=== PATIENT | male | born 1955 | race Caucasian/White ===

== ENCOUNTER 2022-01-04 01:02 | Observation (INO) | payer MEDICARE ==
[~2022-01-04] VITALS: Ht 190 cm; Wt 102.5 kg
--- OUTSIDE RECORDS SUMMARY | 2022-01-05 01:40 | XMS REPORT | Clinical Summary ---
Author [facility] Address Unknown Phone Unavailable Care Team Providers Care Dental Hygiene Administrative Assistant Name Role Phone Bk Padilla MD PCP Dylan Montana DO Unavailable Source Comments Some departments are not documenting in the electronic medical record. If you d o not see the information that you expected, contact Release of Information in [facility] Information Management department at [phone] for further assistan ce in locating additional records.[facility] Allergies No known active allergies Medications End Date Status Medication Sig Dispensed Refills Start Date Active aspirin-calcium carbonate Take 81 mg by 0 81 mg-300 mg calcium(777 mouth daily. mg) tab Active carvediloL (COREG) 12.5 Take 12.5 mg 0 04/21/ mg tablet by mouth 0 twice daily. Active lisinopriL (ZESTRIL) 10 Take 10 mg by 0 03/11/ mg tablet mouth daily. 0 Active simvastatin (ZOCOR) 40 mg Take 40 mg by 0 /2 tablet mouth daily. 0 Active folic Take 1 tablet 0 acid/multivit-min/lutein by mouth (CENTRUM SILVER PO) daily. Active zinc sulfate 220 mg (50 Take 220 mg 0 mg elemental zinc) by mouth capsule daily. Active tamsulosin (FLOMAX) 0.4 Take one 90 capsule 3 mg capsuleIndications: capsule by 1 Benign prostatic mouth daily. hyperplasia with lower Take 30 min urinary tract symptoms, after same symptom details meal. Do not unspecified cut/ crush/ chew. Active Problems Problem Noted Date Benign prostatic hyperplasia (BPH) 01/18/2021 Overview: MRI Prostate (08/20/2019): Prostate vol ume = 36 mL. MRI Prostate (07/19/2021): Prostate vol ume = 46 mL. Last Assessment & Plan: Formatting of t his note might be different from the original. Continue Tamsulosin 0.4 mg BID. Prostate cancer 04/08/2019 Overview: PSA (03/12/2019) = 5.6 ng/mL. TRUS Prostate (04/08/2019): Prostate vo lume = 36.34 mL. PSAD = 0.15 ng/mL^2. Prostate bx (04/08/2019): cT1c; Low-ris k adenocarcinoma; Dr. Montana. -- (R) Grade group 1, 2/8 cores, 5%; MRI Prostate (08/20/2019): Prostate vol ume = 36 mL. -- No evidence to suggest high-grade pr ostate carcinoma. Prostate bx (07/15/2020): No evidence o f malignancy; NINA [facility]. 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 MRI Prostate (07/19/2021): Prostate vol ume = 46 mL. PSAD = 0.12 ng/mL^2. -- (R) posterolateral midgland peripher al zone lesion, 1.2 cm. PI-RADS 3 vs prior prostatitis. Last Assessment & Plan: Formatting of t his note might be different from the original. PSA reviewed --> stable. MRI reviewed --> stable. F/u 6 mo Telemed appt w/ outside PSA ~ 1-4 wks prior to appt. Hypertension, essential Dyslipidemia Nocturia Last Assessment & Plan: Formatting of t his note might be different from the original. See BPH A&P note. Surgical History Surgery Date Site/Laterality Comments HX HEART CATHETERIZATION SKIN CANCER EXCISION Medical History Medical History Date Comments Skin cancer Back Prostate cancer (HCC) 04/08/2019 Hypertension, essential Dyslipidemia Family History Medical History Relation Name Comments Cancer-Prostate Neg Hx Social History Date Tobacco Use Types Packs/Day Years Used Smoking Tobacco: Never Smokeless Tobacco: Never Comments Alcohol Use Standard Drinks/Week Not Currently 0 (1 standard drink = 0.6 o z pure alcohol) Sex Assigned at Date Recorded Male 07/10/2020 3:20 PM CDT Obstetrics History Last Filed Vital Signs Reading Time Taken Comments Vital Sign 127/71 07/19/2021 1:23 PM CDT Blood Pressure 77 07/19/2021 1:23 PM CDT Pulse 36.4 C (97.5 F) 07/15/2020 1:37 PM CDT Temperature 18 07/19/2021 1:23 PM CDT Respiratory Rate - - Oxygen Saturation - - Inhaled Oxygen Concentration 104.3 kg (230 lb) 07/19/2021 1:23 PM CDT Weight 190.5 cm (6' 3") 07/19/2021 1:23 PM CDT Height 28.75 07/19/2021 1:23 PM CDT Body Mass Index Plan of Treatment Health Maintenance Due Date Last Done Comments MEDICARE ANNUAL WELLNESS 1955 VISIT DTAP/TDAP VACCINES (1 - 06/08/1971 Tdap) HEPATITIS C SCREENING 06/08/1971 PHYSICAL (COMPREHENSIVE) 06/08/1971 EXAM COLORECTAL CANCER 1998 SCREENING SHINGLES RECOMBINANT 06/08/2003 VACCINE (1 of 2) PNEUMOCOCCAL VACCINE (1 - 2018 PCV) COVID-19 VACCINE (3 - 05/25/2020 03/30/2020, Booster for Moderna 03/02/2020 series) ADVANCED CARE PLANNING 02/06/2021 DISCUSSION AND DOCUMENTATION DEPRESSION SCREENING 02/06/2021 INFLUENZA VACCINE 09/06/2021 01/09/2020 Results Not on filefrom Last 3 Months Insurance Type Payer Benefit Subscriber ID Effective Phone Address Plan / Dates Group Medicare MEDICARE MEDICARE [id number] 2018-P [phone] [address] [place] [address] PPO BCBS [employer] [id number] 2018-P [phone] [id number] [place] [address] Care Teams Start Date End Date Dental Hygiene Administrative Assistant Relationship Specialty 4/1/20 Bk Padilla MD PCP - General [place] [address] [place] [address] 05/13/19 Dylan Montana DO Urology [address] [address]
[2022-01-05] MEDS ORDERED: ACETAMINOPHEN 500 MG TAB (TYLENOL) PO PRN (04:00)
[2022-01-05] MEDS ORDERED: ENOXAPARIN 100 MG/1 ML (LOVENOX) SYR SC ONE (06:00)
[2022-01-05 08:00] VITALS: BP 121/77
[2022-01-05] MEDS ORDERED: ENOXAPARIN 100 MG/1 ML (LOVENOX) SYR SC SCH (09:00)
[2022-01-05] MEDS ORDERED: ASPIRIN E.C. 81 MG (ECOTRIN) TAB PO SCH (09:00)
--- NOTE | 2022-01-05 09:05 | History & Physical-Hospitalist ---
History of Present Illness HPI/Chief Complaint Patient is a 66-year-old male with past medical history of coronary artery disease, hypertension, hyperlipidemia, who presented to the emergency department at [facility] due to syncope. He states he had a normal day yesterday and was walking in his room and passed out. He was in the bathroom when he woke up sat down and then passed out again. His witnessed this and states that he was unconscious for less than a minute. On arrival to the emergency department he was found to be quite tachycardic in the 160s. The ER physician there consulted with [place] [facility] who recommended digoxin and adenosine. He appeared to have an underlying atrial flutter and laboratory work-up revealed an elevated troponin. He was transferred here for further evaluation. On my exam he has no complaints and is in sinus rhythm. He was incidentally found to be COVID positive upon transfer but denies any symptoms. Source: patient Date Seen 01/05/22 Time Seen by a Provider: 09:04 Attending Physician Bk Padilla DO PCP Admitting Physician: Rancho Recio MD Attending Physician: Rancho Recio MD Referring Physician Date of Admission Jan 05, 2022 at 01:24 Home Medications & Allergies Home Medications Reviewed patient Home Medication Reconciliation performed by pharmacy medication reconciliations microcomputer technician and/or nursing. Patients Allergies have been reviewed. Allergies Allergies Coded Allergies No Known Drug Allergies (Vdqtvnlmzo73/30/22) Past Ghdyyfh-Dmgbex-Zhkpdy Hx Patient Social History Marrital Status: Tobacco Use?: No Smokeless Tobacco Frequency: Never a User Use of E-Cig and/or Vaping dev: No Substance use?: No Alcohol Use?: No Pt feels they are or have been: No Immunizations Up To Date First/Initial COVID19 Vaccinat: y Second COVID19 Vaccination Brice: y- but not boosted Current Status Advance Directives: No Communicates: Verbally Primary Language: Cypriot Preferred Spoken Language: Cypriot Is interpretation needed?: No Implanted or Applied Medical D: None Past Medical History Coronary Artery Disease, High Cholesterol, Hypertension Benign Prostatic Hyperpl Diabetes, Non-Insulin dep Review of Systems Constitutional: No chills, No fever EENTM: No nose congestion, No throat pain Respiratory: No cough, No dyspnea on exertion, No short of breath Cardiovascular: No edema; Hx of Intervention, syncope Gastrointestinal: no symptoms reported Genitourinary: no symptoms reported Musculoskeletal: no symptoms reported Physical Exam Physical Exam Vital Signs Vital Signs - First Documented 01/05/22 01/05/22 01/05/22 01:30 01:48 08:00 Temp 36.3 Pulse 65 Resp 18 B/P (MAP) 121/77 (92) Pulse Ox 93 O2 Delivery Room Air Capillary Refill : Height, Weight, BMI Height: '" Weight: lbs. oz. kg; 28.74 BMI Method: General Appearance: No Apparent Distress, WD/WN HEENT: PERRL/EOMI, Moist Mucous Membranes; No Scleral Icterus (L), No Scleral Icterus (R) Neck: Normal Inspection, Supple Respiratory: Lungs Clear, No Accessory Muscle Use, No Respiratory Distress Cardiovascular: Regular Rate, Rhythm, No JVD, No Murmur Gastrointestinal: Normal Bowel Sounds, Non Tender, Soft Extremity: Normal Capillary Refill, No Calf Tenderness Neurologic/Psychiatric: Alert, Oriented x3, Normal Mood/Affect; No Aphasia, No Facial Droop Results Results/Procedures Labs Laboratory Tests 01/05/22 07:20 Patient resulted labs reviewed. Assessment/Plan Admission Diagnosis NSTEMI Admission Status: Observation Reason for Inpatient Admission: see below Assessment and Plan NSTEMI Atrial tachycardia CAD HTN HLD Trend troponins Received ASA and Heparin at OSH Cardiology consulted, appreciate recs Discussed with [facility] o[facility]rr[facility] for Dr Flanagan and they recommend Eliquis for likely underlying atrial flutter Echo ordered Continue home meds as appropriate COVID Incidental finding Higher risk given age and comorbidities Pt agreeable to Paxlovid On room air- not admitted for COVID BPD Resume home Flomax DVT ppx: Lovenox Diagnosis/Problems Diagnosis/Problems (1) Atrial tachycardia Status: Acute (2) CAD (coronary artery disease) Status: Chronic Qualifiers: Coronary Disease-Associated Artery/Lesion type: [place] artery [place] vs. transplanted heart: [place] heart Associated angina: without angina Qualified Codes: I25.10 - Atherosclerotic heart disease of [place] coronary artery without angina pectoris (3) Essential (primary) hypertension Status: Chronic (4) HLD (hyperlipidemia) Status: Chronic Qualifiers: Hyperlipidemia type: mixed hyperlipidemia Qualified Codes: E78.2 - Mixed hyperlipidemia (5) Syncope Status: Acute Qualifiers: Syncope type: unspecified Qualified Codes: R55 - Syncope and collapse PHILLIP MOREIRA MD Jan 05, 2022 9:04 am
--- NOTE | 2022-01-05 09:43 | Consultation-Cardiology ---
HPI-Cardiology Cardiology Consultation: Date of Consultation 01/05/22 Time Seen by a Provider: 09:00 Date of Admission 01-05-22 Attending Physician Bk Padilla DO Admitting Physician Admitting Physician: Rancho Recio MD Attending Physician: Rancho Recio MD Consulting Physician CARRIE MARTINEZ HPI: Chief Complaint: Syncope Atrial tachycardia vs atrial flutter with 2:1 conduction Mr. Scott is a 66 yr old male admitted to [facility] from [facility] d/t syncopal episodes x 2 at home. He reports he got up yesterday to use the bathroom. He states he was having palpitations and the next thing he recalls he had passed out hitting his head on the wall. He reports he came to when he hit the floor. He reports he then decided to go sit down once he got up. He was still having palpitations and he again passed out while sitting coming to when he hit the floor. He does not report any loss of bowel or bladder control. He states after he came to the second time he could still feel his heart racing. He denies any CP or SOB. He denies having any LE swelling. He states in the ED at [facility] they found his HR to be in the 130's-140's. He states he received a medication in the ED and the palpitations resolved and have not returned. He states he has not had any n/v/d. No c/o fever or chills. He reports he was swabbed on his way out the door from [place] to be transferred here and found to be COVID positive. Review of Systems-Cardiology Review of Systems Constitutional: No chills, No fever, No malaise Eyes: No vision change Ears/Nose/Throat: No epistaxis, No recent hearing loss, No ulcerations Respiratory: As described under HPI Cardiovascular: As described under HPI Gastrointestinal: No constipation, No diarrhea, No nausea, No vomiting Genitourinary: No dysuria, No hematuria Musculoskeletal: no symptoms reported Skin: No rash on exposed areas, No ulcerations on exposed areas Psychiatric/Neurological: syncope; No anxiety, No depression, No seizure, No focal weakness Hematologic: No bleeding abnormalities OJE-Rpcsfh-Ocmewh Hx Patient Social History Have you traveled recently?: No Alcohol Use?: No Pt feels they are or have been: No Past Medical History PMH As described under Assessment. Family Medical History Family Medical History: He reports his father had "heart trouble", exact details unknown other than he had a pacemaker. Allergies and Home Medications Allergies Coded Allergies: No Known Drug Allergies (Unverified , 01/05/22) Patient Home Medication List Aspirin (Aspirin EC) 81 Mg Tablet.dr, 81 MG PO DAILY, (Reported) Entered as Reported by: ABA MERRILL on 01/05/221324 Last Action: Held Carvedilol (Carvedilol) 12.5 Mg Tablet, 12.5 MG PO BID, (Reported) Entered as Reported by: ABA MERRILL on 01/05/221324 Last Action: Held Lisinopril (Lisinopril) 10 Mg Tablet, 10 MG PO DAILY, (Reported) Entered as Reported by: ABA MERRILL on 01/05/221324 Last Action: Held Multivitamin (Multivitamin) 1 Each Tablet, 1 EACH PO DAILY, (Reported) Entered as Reported by: ABA MERRILL on 01/05/221324 Last Action: Converted Simvastatin (Simvastatin) 40 Mg Tablet, 40 MG PO HS, (Reported) Entered as Reported by: ABA MERRILL on 01/05/221324 Last Action: Converted Tamsulosin HCl (Flomax) 0.4 Mg Cap, 0.4 MG PO HS, (Reported) Entered as Reported by: ABA MERRILL on 01/05/221324 Last Action: Continued Physical Exam-Cardiology Physical Exam Vital Signs/I&O 01/06/22 01/06/22 01/06/22 01/06/22 00:00 01:00 04:14 07:00 Temp 37.0 36.3 Pulse 59 50 63 50 Resp 15 17 B/P (MAP) 117/76 (90) 124/75 (91) Pulse Ox 97 98 O2 Delivery Room Air Room Air 01/06/22 08:00 Temp 36.2 Pulse 69 Resp 16 B/P (MAP) 125/79 (94) Pulse Ox 97 O2 Delivery Room Air 01/06/22 00:00 Intake Total 730 ml Balance 730 ml Capillary Refill : Constitutional: AAO x 3, well-developed, well-nourished HEENT: PERRL, hearing is well preserved, oral hygience is good Neck: No carotid bruit; carotid pulses are 2 + bilaterally Respiratory: No accessory muscle use, No respiratory distress; chest expansion is symmetric, chest is bilaterally symmetric, lungs clear to auscultation Cardiovascular: regular rate-rhythm; No JVD; S1 and S2 Gastrointestinal: No tender; soft, round, audible bowel sounds Extremities: no lower extremity edema bilateral Neurologic/Psychiatric: grossly intact (moves all extremities) Skin: No rash on exposed areas, No ulcerations on exposed areas Data Review Labs Laboratory Tests 01/05/22 14:35: Troponin I 0.057H 01/06/22 08:35: Sodium Level 141, Potassium Level 4.1, Chloride Level 107, Carbon Dioxide Level 20L, Anion Gap 14, Blood Urea Nitrogen 15, Creatinine 0.94, Estimat Glomerular Filtration Rate 88, BUN/Creatinine Ratio 16, Glucose Level 137H, Calcium Level 9.8, Magnesium Level 1.8 ECG Impression ECG Comment EKG from [facility]: Atrial tachycardia vs atrial flutter with 2:1 conduction A/P-Cardiology Assessment/Admission Diagnosis Syncope - undetermined etiology Atrial tachycardia vs atrial flutter with 2:1 AV conduction of EKG of 01-04-22 at [facility] Minimal troponin elevation - likely Type 2 [place] secondary to tachycardia CAD - h/o stents x 1 [facility] by [address]. Stevenson approx 15 yrs ago HTN HLD - statin tx Discussion and Recomendations Syncope x 2 of undetermined etiology - keep on tele - consider implant of ILR as out pt if no cause is found on tele Atrial tachycardia vs atrial flutter with 2:1 AV conduction - start on OAC for stroke prophylaxis - start on Cardizem CD 240mg daily Minimal troponin elevation - likely Type 2 [place] secondary to tachycardia EKG today Echocardiogram today Lab Replace electrolytes as indicated Request records Start ASA 81 mg daily d/t known h/o CAD with stent in the past Consider MPI Further recs will be based on his hospital course We would like to thank medical services for this consult CARRIE KENNEDY Jan 05, 2022 09:43
[2022-01-05] MEDS ORDERED: APIXABAN 5 MG (ELIQUIS) TABLET PO NR (10:00)
[2022-01-05] MEDS ORDERED: ASPIRIN 81 MG CHEW (CHILDREN'S ASA) PO NR (10:00)
[2022-01-05 10:27] LABS: HEMATOCRIT 48 % (40-54); HEMOGLOBIN 15.8 g/dL (13.3-17.7); MEAN CORPUSCULAR HEMOGLOBIN 31 pg (25-34); MEAN CORPUSCULAR HGB CONC 33 g/dL (32-36); MEAN CORPUSCULAR VOLUME 94 fL (80-99); MEAN PLATELET VOLUME 10.9 fL (9.0-12.2); PLATELET COUNT 183 10^3/uL (130-400); WHITE BLOOD COUNT 12.7 10^3/uL (4.3-11.0)
[2022-01-05 10:41] LABS: ALBUMIN 3.8 GM/DL (3.2-4.5); BILIRUBIN,TOTAL 0.9 MG/DL (0.1-1.0); CALCIUM 8.9 MG/DL (8.5-10.1); CREATININE SERUM 0.91 MG/DL (0.60-1.30); MAGNESIUM 1.9 MG/DL (1.6-2.4); TOTAL PROTEIN 6.1 GM/DL (6.4-8.2)
[2022-01-05 11:50] VITALS: BP 139/77
[2022-01-05] MEDS ORDERED: MULT-1136 PO (13:25)
[2022-01-05] MEDS ORDERED: ASPI-1238 PO (13:25)
[2022-01-05] MEDS ORDERED: CARV12.53 PO (13:25)
[2022-01-05] MEDS ORDERED: LISI10TA25 PO (13:25)
[2022-01-05] MEDS ORDERED: SIMV40TA25 PO (13:25)
[2022-01-05] MEDS ORDERED: TMSL.4C PO (13:25)
[2022-01-05] MEDS ORDERED: RELABEL FOR HOME USE MC SCH (14:45)
[2022-01-05] MEDS ORDERED: NIRMATRELVIR/RITONAVIR (PAXLOVID) TABLET PO SCH (15:00)
[2022-01-05 16:12] VITALS: BP 124/73
--- NOTE | 2022-01-05 17:10 | Consultation-Cardiology ---
HPI-Cardiology Cardiology Consultation: Date of Consultation 01/05/22 Time Seen by a Provider: 13:00 Date of Admission Attending Physician Bk Padilla DO Admitting Physician Admitting Physician: Rancho Recio MD Attending Physician: Rancho Recio MD Consulting Physician THANH PADRON MD, MA, FACP, FACC, [facility] [place], CCDS HPI: Chief Complaint: Syncope Atrial tachycardia vs atrial flutter with 2:1 conduction Mr. Scott is a 66 yr old male admitted to [facility] from [facility] d/t syncopal episodes x 2 at home. He reports he got up yesterday to use the bathroom. He states he was having palpitations and the next thing he recalls he had passed out hitting his head on the wall. He reports he came to when he hit the floor. He reports he then decided to go sit down once he got up. He was still having palpitations and he again passed out while sitting coming to when he hit the floor. He does not report any loss of bowel or bladder control. He states after he came to the second time he could still feel his heart racing. He denies any CP or SOB. He denies having any LE swelling. He states in the ED at [facility] they found his HR to be in the 130's-140's. He states he received a medication in the ED and the palpitations resolved and have not returned. He states he has not had any n/v/d. No c/o fever or chills. He reports he was swabbed on his way out the door from [place] to be transferred here and found to be COVID positive. Review of Systems-Cardiology Review of Systems Constitutional: No chills, No fever, No malaise Eyes: No vision change Ears/Nose/Throat: No epistaxis, No recent hearing loss, No ulcerations Respiratory: As described under HPI Cardiovascular: As described under HPI Gastrointestinal: No constipation, No diarrhea, No nausea, No vomiting Genitourinary: No dysuria, No hematuria Musculoskeletal: no symptoms reported Skin: No rash on exposed areas, No ulcerations on exposed areas Psychiatric/Neurological: syncope; No anxiety, No depression, No seizure, No focal weakness Hematologic: No bleeding abnormalities MLY-Xpqnof-Sorrjh Hx Patient Social History Marrital Status: Have you traveled recently?: No Alcohol Use?: No Pt feels they are or have been: No Past Medical History PMH As described under Assessment. Family Medical History Family Medical History: He reports his father had "heart trouble", exact details unknown other than he had a pacemaker. Allergies and Home Medications Allergies Coded Allergies: No Known Drug Allergies (Unverified , 01/05/22) Patient Home Medication List Home Medication List Reviewed: Yes Aspirin (Aspirin EC) 81 Mg Tablet.dr, 81 MG PO DAILY, (Reported) Entered as Reported by: ABA MERRILL on 01/05/221324 Last Action: Held Carvedilol (Carvedilol) 12.5 Mg Tablet, 12.5 MG PO BID, (Reported) Entered as Reported by: ABA MERRILL on 01/05/221324 Last Action: Held Lisinopril (Lisinopril) 10 Mg Tablet, 10 MG PO DAILY, (Reported) Entered as Reported by: ABA MERRILL on 01/05/221324 Last Action: Held Multivitamin (Multivitamin) 1 Each Tablet, 1 EACH PO DAILY, (Reported) Entered as Reported by: ABA MERRILL on 01/05/221324 Last Action: Converted Simvastatin (Simvastatin) 40 Mg Tablet, 40 MG PO HS, (Reported) Entered as Reported by: ABA MERRILL on 01/05/221324 Last Action: Converted Tamsulosin HCl (Flomax) 0.4 Mg Cap, 0.4 MG PO HS, (Reported) Entered as Reported by: ABA MERRILL on 01/05/221324 Last Action: Continued Physical Exam-Cardiology Physical Exam Vital Signs/I&O 01/05/22 01/05/22 01/05/22 01/05/22 07:00 08:00 08:00 11:50 Temp 36.3 36.1 Pulse 60 60 64 Resp 18 16 B/P (MAP) 121/77 (92) 139/77 (97) Pulse Ox 95 96 O2 Delivery Room Air Room Air Room Air 01/05/22 01/05/22 13:00 16:12 Temp 36.7 Pulse 69 58 Resp 18 B/P (MAP) 124/73 (90) Pulse Ox 97 O2 Delivery Room Air Capillary Refill : Constitutional: AAO x 3, well-developed, well-nourished HEENT: PERRL, hearing is well preserved, oral hygience is good Neck: No carotid bruit; carotid pulses are 2 + bilaterally Respiratory: No accessory muscle use, No respiratory distress; chest expansion is symmetric, chest is bilaterally symmetric, lungs clear to auscultation Cardiovascular: regular rate-rhythm; No JVD; S1 and S2 Gastrointestinal: No tender; soft, round, audible bowel sounds Extremities: no lower extremity edema bilateral Neurologic/Psychiatric: grossly intact (moves all extremities) Skin: No rash on exposed areas, No ulcerations on exposed areas Data Review Labs Laboratory Tests 01/05/22 07:20: White Blood Count 12.7H, Red Blood Count 5.11, Hemoglobin 15.8, Hematocrit 48, Mean Corpuscular Volume 94, Mean Corpuscular Hemoglobin 31, Mean Corpuscular Hemoglobin Concent 33, Red Cell Distribution Width 12.9, Platelet Count 183, Mean Platelet Volume 10.9, Sodium Level 144, Potassium Level 4.0, Chloride Level 112H, Carbon Dioxide Level 18L, Anion Gap 14, Blood Urea Nitrogen 20H, Creatinine 0.91, Estimat Glomerular Filtration Rate 92, BUN/Creatinine Ratio 22, Glucose Level 117H, Calcium Level 8.9, Corrected Calcium 9.1, Magnesium Level 1.9, Total Bilirubin 0.9, Aspartate Amino Transf (AST/SGOT) 23, Alanine Aminotransferase (ALT/SGPT) 21, Alkaline Phosphatase 76, Troponin I 0.095H, Total Protein 6.1L, Albumin 3.8, Triglycerides Level 157H, Cholesterol Level 122, LDL Cholesterol Direct 72, VLDL Cholesterol 31, HDL Cholesterol 27L, Thyroid Stimulating Hormone (TSH) 2.61 01/05/22 14:35: Troponin I 0.057H A/P-Cardiology Assessment/Admission Diagnosis Syncope - undetermined etiology: arrhythmia vs postural hypotension (during acute Covid) on 01/04/22 Atrial tachycardia vs atrial flutter with 2:1 AV conduction of EKG of 01-04-22 at [facility] Minimal troponin elevation - likely Type 2 [place] secondary to tachycardia CAD - h/o stents x 1 at [facility] by Dr. Stevenson approx 15 yrs ago HTN HLD - statin tx Discussion and Recomendations Syncope x 2 of undetermined etiology - keep on tele - consider implant of ILR as out pt if no cause is found on tele Atrial tachycardia vs atrial flutter with 2:1 AV conduction - start on OAC for stroke prophylaxis - start on Cardizem CD 240mg daily Minimal troponin elevation - likely Type 2 [place] secondary to tachycardia EKG today Echocardiogram today Lab Replace electrolytes as indicated Request records Start ASA 81 mg daily d/t known h/o CAD with stent in the past Further recs will be based on his hospital course I had a long and detailed discussion with him regarding his CV issues and our management plan. I answered his questions in detail THANH PADRON MD FACP FAC CCDS Jan 05, 2022 17:10
[2022-01-05 20:30] VITALS: BP 123/80
[2022-01-05] MEDS: NIRMATRELVIR/RITONAVIR (PAXLOVID) TABLET PO SCH (20:58)
[2022-01-05] MEDS: APIXABAN 5 MG (ELIQUIS) TABLET PO SCH (20:58)
[2022-01-05] MEDS ORDERED: TAMSULOSIN 0.4 MG (FLOMAX) CAP PO SCH (21:00)
[2022-01-05] MEDS ORDERED: NON-FORMULARY MEDICATION 1 EA EA (Simvastatin 40 MG) PO SCH (21:00)
[2022-01-06] VITALS: BP_SYST 117; BP_SYST 146; BP_DIAS 75; BP_DIAS 76
[2022-01-06 04:14] VITALS: BP 124/75
[2022-01-06] MEDS: MULTIVIT W/MINERALS TAB (THERAGRAN M) PO SCH (06:55)
[2022-01-06 08:00] VITALS: BP 125/79
[2022-01-06 09:03] LABS: CALCIUM 9.8 MG/DL (8.5-10.1); CREATININE SERUM 0.94 MG/DL (0.60-1.30); MAGNESIUM 1.8 MG/DL (1.6-2.4); POTASSIUM 4.1 MMOL/L (3.6-5.0)
--- NOTE | 2022-01-06 09:18 | Discharge Summary ---
Diagnosis/Chief Complaint Date of Admission Jan 05, 2022 at 01:24 Date of Discharge Discharge Date: Jan 06, 2022 Admission Diagnosis NSTEMI [facility] Discharge Diagnosis (1) Atrial tachycardia Status: Acute (2) CAD (coronary artery disease) Status: Chronic (3) Essential (primary) hypertension Status: Chronic (4) HLD (hyperlipidemia) Status: Chronic (5) Syncope Status: Acute Discharge Summary Discharge Physical Exam Allergies: Coded Allergies: No Known Drug Allergies (Unverified , 01/05/22) Vitals & I&Os Vital Signs Date Time Temp Pulse Resp B/P (MAP) Pulse Ox O2 Delivery O2 Flow Rate FiO2 01/06/22 08:00 36.2 69 16 125/79 (94) 97 Room Air Hospital Course Labs (last 24 hrs) Laboratory Tests 01/05/22 14:35: Troponin I 0.057H 01/06/22 08:35: Sodium Level 141, Potassium Level 4.1, Chloride Level 107, Carbon Dioxide Level 20L, Anion Gap 14, Blood Urea Nitrogen 15, Creatinine 0.94, Estimat Glomerular Filtration Rate 88, BUN/Creatinine Ratio 16, Glucose Level 137H, Calcium Level 9.8, Magnesium Level 1.8 Patient resulted labs reviewed. Pending Labs Laboratory Tests 01/06/22 08:35: Sodium Level 141, Potassium Level 4.1, Chloride Level 107, Carbon Dioxide Level 20, Anion Gap 14, Blood Urea Nitrogen 15, Creatinine 0.94, Estimat Glomerular Filtration Rate 88, BUN/Creatinine Ratio 16, Glucose Level 137, Calcium Level 9.8, Magnesium Level 1.8 Discharge Home Medications: Active Scripts Active Simvastatin 40 Mg Tablet 40 Mg PO HS 30 Days Stop until you have completed paxlovid. Can resume 2 days after it finishes. Reported Aspirin EC (Aspirin) 81 Mg Tablet.dr 81 Mg PO DAILY Multivitamin 1 Each Tablet 1 Each PO DAILY Flomax (Tamsulosin HCl) 0.4 Mg Cap 0.4 Mg PO HS Carvedilol 12.5 Mg Tablet 12.5 Mg PO BID Lisinopril 10 Mg Tablet 10 Mg PO DAILY Instructions to patient/family Please see electronic discharge instructions given to patient. Problem Qualifiers (1) CAD (coronary artery disease): Coronary Disease-Associated Artery/Lesion type: [place] artery [place] vs. transplanted heart: [place] heart Associated angina: without angina Qualified Codes: I25.10 - Atherosclerotic heart disease of [place] coronary artery without angina pectoris (2) HLD (hyperlipidemia): Hyperlipidemia type: mixed hyperlipidemia Qualified Codes: E78.2 - Mixed hyperlipidemia (3) Syncope: Syncope type: unspecified Qualified Codes: R55 - Syncope and collapse PHILLIP MOREIRA MD Jan 06, 2022 09:18
--- NOTE | 2022-01-06 09:19 | Discharge Inst-Simple/Standard ---
Discharge Inst-Standard Patient Instructions/Follow Up Plan of Care/Instructions/FU: Please continue to take your medications as written. Please follow up with your primary care doctor to follow up this hospital stay. Activity as Tolerated: Yes Discharge Diet: Cardiac Diet Return to The Hospital For: Chest pain, shortness of breath, fever, weakness, if you feel you are getting worse. PHILLIP MOREIRA MD Jan 06, 2022 09:19
[2022-01-06] MEDS: NIRMATRELVIR/RITONAVIR (PAXLOVID) TABLET PO SCH ×2 (09:53→21:31)
[2022-01-06] MEDS: APIXABAN 5 MG (ELIQUIS) TABLET PO SCH (09:53)
[2022-01-06] MEDS: ASPIRIN 81 MG CHEW (CHILDREN'S ASA) PO SCH (09:53)
--- NOTE | 2022-01-06 10:25 | Progress Note - Cardiology ---
Cardiology SOAP Progress Note Subjective: Sitting up in recliner at the bedside Spouse present States he feels well No c/o CP, SOB or palpitations No further episodes of syncope or near syncope Objective: I&O/Vital Signs 01/06/22 01/06/22 01/06/22 01/06/22 00:00 01:00 04:14 07:00 Temp 37.0 36.3 Pulse 59 50 63 50 Resp 15 17 B/P (MAP) 117/76 (90) 124/75 (91) Pulse Ox 97 98 O2 Delivery Room Air Room Air 01/06/22 01/06/22 08:00 08:00 Temp 36.2 Pulse 69 Resp 16 B/P (MAP) 125/79 (94) Pulse Ox 97 O2 Delivery Room Air Room Air 01/06/22 00:00 Intake Total 730 ml Balance 730 ml Constitutional: AAO x 3, well-developed, well-nourished Respiratory: No accessory muscle use, No respiratory distress; chest expansion is symmetric, chest is bilaterally symmetric, lungs clear to auscultation Cardiovascular: regular rate-rhythm; No JVD; S1 and S2 Gastrointestional: No tender; soft, round, audible bowel sounds Extremities: no lower extremity edema bilateral Neurologic/Psychiatric: grossly intact (moves all extremities) Skin: No rash on exposed areas, No ulcerations on exposed areas Results/Procedures: Labs Laboratory Tests 01/05/22 14:35: Troponin I 0.057H 01/06/22 08:35: Sodium Level 141, Potassium Level 4.1, Chloride Level 107, Carbon Dioxide Level 20L, Anion Gap 14, Blood Urea Nitrogen 15, Creatinine 0.94, Estimat Glomerular Filtration Rate 88, BUN/Creatinine Ratio 16, Glucose Level 137H, Calcium Level 9.8, Magnesium Level 1.8 A/P: Assessment: Syncope - undetermined etiology: arrhythmia vs postural hypotension (during acute Covid) on 01/04/22 Atrial tachycardia vs atrial flutter with 2:1 AV conduction of EKG of 01-04-22 at [facility] Minimal troponin elevation - likely Type 2 IA secondary to tachycardia CAD - h/o stents x 1 at [facility] by Dr. Stevenson approx 15 yrs ago ICM - Echocardiogram of 01-05-22 showed LVEF 35-40%. Akinesis of the apical myocardium. Hypokinesis of the anteroseptal myocardium. LA mod to mod dilated. Mild MR. Trivial AoR HTN HLD - statin tx Plan: Syncope x 2 of undetermined etiology - keep on tele Atrial tachycardia vs atrial flutter with 2:1 AV conduction - continue OAC for stroke prophylaxis Lab Replace electrolytes as indicated Request records again from Dr. Stevenson Continue ASA 81 mg daily d/t known h/o CAD with stent in the past Echocardiogram shows ICM - restart Coreg but at a lower dose d/t recent syncopal episodes possibly d/t bradycardia vs postural hypotension - restart Lisinopril but at a lower dose for reasons noted above - adjust medications as tolerated I have discussed plan of care with patient and spouse. I have spoken with Dr. Shaw as well. CARRIE KENNEDY Jan 06, 2022 10:25
[2022-01-06] MEDS ORDERED: SIMV40TA25 PO (10:50)
--- NOTE | 2022-01-06 11:44 | Progress Note - Hospitalist ---
Subjective HPI/CC On Admission Date Seen by Provider: Jan 06, 2022 Patient is a 66-year-old male with past medical history of coronary artery disease, hypertension, hyperlipidemia, who presented to the emergency department at [facility] due to syncope. He states he had a normal day yesterday and was walking in his room and passed out. He was in the bathroom when he woke up sat down and then passed out again. His witnessed this and states that he was unconscious for less than a minute. On arrival to the emergency department he was found to be quite tachycardic in the 160s. The ER physician there consulted with [place] cardiology who recommended digoxin and adenosine. He appeared to have an underlying atrial flutter and laboratory work-up revealed an elevated troponin. He was transferred here for further evaluation. On my exam he has no complaints and is in sinus rhythm. He was incidentally found to be COVID positive upon transfer but denies any symptoms. Subjective/Events-last exam Pt reports doing well. Hopeful to be able to go home today. Objective Exam Vital Signs Vital Signs Date Time Temp Pulse Resp B/P (MAP) Pulse Ox O2 Delivery O2 Flow Rate FiO2 01/06/22 08:00 36.2 69 16 125/79 (94) 97 Room Air Capillary Refill : General Appearance: No Apparent Distress, WD/WN Respiratory: Lungs Clear, No Respiratory Distress Cardiovascular: Regular Rate, Rhythm, No Murmur Gastrointestinal: Normal Bowel Sounds, Non Tender, Soft Neurologic/Psychiatric: Alert, Oriented x3 Results/Procedures Lab Laboratory Tests 01/06/22 08:35 Patient resulted labs reviewed. Assessment/Plan Assessment and Plan Assess & Plan/Chief Complaint NSTEMI Atrial tachycardia CAD HTN HLD Troponin trended down ASA and Eliquis Cardiology consulted, appreciate recs Echo shows EF of 35-40% Discussed with SENIA Morris For Dr Flanagan and they recommend another night in the hospital due to low EF Continue home meds as appropriate COVID Incidental finding up transfer Higher risk given age and comorbidities Pt agreeable to Paxlovid On room air- not admitted for COVID BPD Flomax DVT ppx: Eliquis Diagnosis/Problems Diagnosis/Problems (1) Atrial tachycardia Status: Acute (2) CAD (coronary artery disease) Status: Chronic Qualifiers: Coronary Disease-Associated Artery/Lesion type: [place] artery [place] vs. transplanted heart: [place] heart Associated angina: without angina Qualified Codes: I25.10 - Atherosclerotic heart disease of [place] coronary artery without angina pectoris (3) Essential (primary) hypertension Status: Chronic (4) HLD (hyperlipidemia) Status: Chronic Qualifiers: Hyperlipidemia type: mixed hyperlipidemia Qualified Codes: E78.2 - Mixed hyperlipidemia (5) Syncope Status: Acute Qualifiers: Syncope type: unspecified Qualified Codes: R55 - Syncope and collapse PHILLIP MOREIRA MD Jan 06, 2022 11:44
[2022-01-06 12:00] VITALS: BP 126/81
[2022-01-06 16:00] VITALS: BP 115/69
--- NOTE | 2022-01-06 17:03 | Progress Note - Cardiology ---
Cardiology SOAP Progress Note Subjective: No recurrence of syncope Shortness of breath better Gen malaise and weakness improving No n/v/d No focal weakness No cp or palp Objective: I&O/Vital Signs 01/06/22 01/06/22 01/06/22 01/06/22 07:00 08:00 08:00 12:00 Temp 36.2 36.0 Pulse 50 69 70 Resp 16 16 B/P (MAP) 125/79 (94) 126/81 (96) Pulse Ox 97 99 O2 Delivery Room Air Room Air Room Air 01/06/22 13:00 Pulse 58 01/05/22 23:59 Intake Total 730 ml Balance 730 ml Constitutional: AAO x 3, well-developed, well-nourished Respiratory: No accessory muscle use, No respiratory distress; chest expansion is symmetric, chest is bilaterally symmetric, lungs clear to auscultation Cardiovascular: regular rate-rhythm; No JVD; S1 and S2 Gastrointestional: No tender; soft, round, audible bowel sounds Extremities: no lower extremity edema bilateral Neurologic/Psychiatric: grossly intact (moves all extremities) Skin: No rash on exposed areas, No ulcerations on exposed areas Results/Procedures: Labs Laboratory Tests 01/06/22 08:35: Sodium Level 141, Potassium Level 4.1, Chloride Level 107, Carbon Dioxide Level 20L, Anion Gap 14, Blood Urea Nitrogen 15, Creatinine 0.94, Estimat Glomerular Filtration Rate 88, BUN/Creatinine Ratio 16, Glucose Level 137H, Calcium Level 9.8, Magnesium Level 1.8 A/P: Assessment: Syncope - undetermined etiology: arrhythmia vs postural hypotension (during acute Covid) on 01/04/22 - Echo on 01/06/22: LVEF 35-40%, shamar-apical hypokinesis to akinesis Atrial tachycardia vs atrial flutter with 2:1 AV conduction of EKG of 01-04-22 at [facility] Abnormal ECG: NSR with nonspecific IVCD Minimal troponin elevation - likely Type 2 OR secondary to tachycardia CAD - h/o stents x 1 at [facility] by [address]. Stevenson approx 15 yrs ago ICM - Echocardiogram of 01-05-22 showed LVEF 35-40%. Akinesis of the apical myocardium. Hypokinesis of the anteroseptal myocardium. LA mod to mod dilated. Mild MR. Trivial AoR HTN HLD - statin tx Plan: * I called [facility] and spoke with Dr Fairbanks (covering for Dr Stevenson). A h/o CAD and cor stenting is reported and he is also reported to have a recently abn stress test * Given above history and cardiac [facility], malignant arrhythmia needs to be considered; we recommend card cath to eval for CAD as a basis for possible malignant arrhythmia. I discussed this in detail with him and his , including rationale, procedure, risks, benefits, potential complications, and alternatives of cath and possible ad hoc cor intervention. They understand. He provides informed consent * Treat with antiplatelet agents, bb and IVELISSE-inhib THANH PADRON MD FACP FAC CCDS Jan 06, 2022 17:03
[2022-01-06 20:00] VITALS: BP 120/77
[2022-01-06] MEDS: APIXABAN 2.5 MG (ELIQUIS) TABLET PO SCH (21:30)
[2022-01-07] VITALS: BP 118/74
[2022-01-07 04:00] VITALS: BP 121/72
[2022-01-07 05:43] LABS: POTASSIUM 3.9 MMOL/L (3.6-5.0)
[2022-01-07 05:45] LABS: CALCIUM 9.5 MG/DL (8.5-10.1)
[2022-01-07 05:49] LABS: CREATININE SERUM 0.9 MG/DL (0.60-1.30)
[2022-01-07 05:51] LABS: MAGNESIUM 1.8 MG/DL (1.6-2.4)
--- NOTE | 2022-01-07 05:57 | Progress Note - Hospitalist ---
Subjective HPI/CC On Admission Date Seen by Provider: Jan 07, 2022 Patient is a 66-year-old male with past medical history of coronary artery disease, hypertension, hyperlipidemia, who presented to the emergency department at [facility] due to syncope. He states he had a normal day yesterday and was walking in his room and passed out. He was in the bathroom when he woke up sat down and then passed out again. His witnessed this and states that he was unconscious for less than a minute. On arrival to the emergency department he was found to be quite tachycardic in the 160s. The ER physician there consulted with [place] cardiology who recommended digoxin and adenosine. He appeared to have an underlying atrial flutter and laboratory work-up revealed an elevated troponin. He was transferred here for further evaluation. On my exam he has no complaints and is in sinus rhythm. He was incidentally found to be COVID positive upon transfer but denies any symptoms. Subjective/Events-last exam Pt denies any complaints. Planning for cath later today with Dr Flanagan. Objective Exam Vital Signs Vital Signs Date Time Temp Pulse Resp B/P (MAP) Pulse Ox O2 Delivery O2 Flow Rate FiO2 01/07/22 04:00 51 16 121/72 (88) 95 Room Air 01/07/22 00:00 36.6 Capillary Refill : General Appearance: No Apparent Distress, WD/WN Respiratory: Lungs Clear, No Respiratory Distress Cardiovascular: Regular Rate, Rhythm, No Murmur Neurologic/Psychiatric: Alert, Oriented x3 Results/Procedures Lab Laboratory Tests 01/06/22 08:35 01/07/22 05:18 Patient resulted labs reviewed. Assessment/Plan Assessment and Plan Assess & Plan/Chief Complaint NSTEMI Atrial tachycardia CAD HTN HLD ischemic cardiomyopathy ASA and Eliquis Cardiology consulted, appreciate recs Echo shows EF of 35-40% Plan for cath today Continue home meds as appropriate COVID Incidental finding up transfer Higher risk given age and comorbidities Pt agreeable to Paxlovid On room air- not admitted for COVID BPD Flomax DVT ppx: Eliquis Diagnosis/Problems Diagnosis/Problems (1) Atrial tachycardia Status: Acute (2) CAD (coronary artery disease) Status: Chronic Qualifiers: Coronary Disease-Associated Artery/Lesion type: [place] artery [place] vs. transplanted heart: [place] heart Associated angina: without angina Qualified Codes: I25.10 - Atherosclerotic heart disease of [place] coronary artery without angina pectoris (3) Essential (primary) hypertension Status: Chronic (4) HLD (hyperlipidemia) Status: Chronic Qualifiers: Hyperlipidemia type: mixed hyperlipidemia Qualified Codes: E78.2 - Mixed hyperlipidemia (5) Syncope Status: Acute Qualifiers: Syncope type: unspecified Qualified Codes: R55 - Syncope and collapse PHILLIP MOREIRA MD Jan 07, 2022 05:57
[2022-01-07] MEDS: MULTIVIT W/MINERALS TAB (THERAGRAN M) PO SCH (06:13)
[2022-01-07] MEDS ORDERED: lisINopril 5 MG (PRINIVIL) TABLET PO SCH (09:00)
[2022-01-07] MEDS: APIXABAN 2.5 MG (ELIQUIS) TABLET PO SCH ×2 (09:16→21:19)
[2022-01-07] MEDS: ASPIRIN 81 MG CHEW (CHILDREN'S ASA) PO SCH (09:16)
[2022-01-07] MEDS: NIRMATRELVIR/RITONAVIR (PAXLOVID) TABLET PO SCH ×2 (09:17→21:19)
[2022-01-07] MEDS ORDERED: LIDOCAINE 1% INJ 30 ML (XYLOCAINE) VIAL ONE (13:26)
[2022-01-07] MEDS ORDERED: NS IV 1000 ML 1,000 ML ONE (13:26)
[2022-01-07] MEDS ORDERED: HEParin (CATH LAB) 2,000 ML IV ONE (13:26)
[2022-01-07] MEDS ORDERED: MIDAZOLAM 5 MG/5 ML (VERSED) VIAL ONE (14:53)
[2022-01-07] MEDS ORDERED: fentaNYL INJ 100 MCG/2 ML AMP ONE (14:53)
--- NOTE | 2022-01-07 16:58 | Progress Note - Cardiology ---
Cardiology SOAP Progress Note Subjective: No cp Gen weakness and malaise Shortness of breath with mild to mod activity No palp No recurrence of syncope Mild leg swelling No n/v/d Objective: I&O/Vital Signs 01/07/22 01/07/22 01/07/22 07:00 08:00 13:00 Pulse 60 57 Pulse Ox 94 O2 Delivery Room Air 01/06/22 23:59 Intake Total 2080 ml Balance 2080 ml Constitutional: AAO x 3, well-developed, well-nourished Respiratory: No accessory muscle use, No respiratory distress; chest expansion is symmetric, chest is bilaterally symmetric, lungs clear to auscultation Cardiovascular: regular rate-rhythm; No JVD; S1 and S2 Gastrointestional: No tender; soft, round, audible bowel sounds Extremities: no lower extremity edema bilateral Neurologic/Psychiatric: grossly intact (moves all extremities) Skin: No rash on exposed areas, No ulcerations on exposed areas Results/Procedures: Labs Laboratory Tests 01/07/22 05:18: Sodium Level 140, Potassium Level 3.9, Chloride Level 108H, Carbon Dioxide Level 18L, Anion Gap 14, Blood Urea Nitrogen 19H, Creatinine 0.90, Estimat Glomerular Filtration Rate 93, BUN/Creatinine Ratio 21, Glucose Level 121H, Calcium Level 9.5, Magnesium Level 1.8 A/P: Assessment: Syncope - undetermined etiology: arrhythmia vs postural hypotension (during acute Covid) on 01/04/22 - Echo on 01/06/22: LVEF 35-40%, shamar-apical hypokinesis to akinesis - Card cath on 01/07/22: LVEF 20-25%, global hypokinesis, LVEF 20-25%, LVEDP 10 mmHg, patent stent in prox LAD, mild CAD Atrial tachycardia vs atrial flutter with 2:1 AV conduction of EKG of 01-04-22 at [facility] Abnormal ECG: NSR with nonspecific IVCD Minimal troponin elevation - likely Type 2 NM secondary to tachycardia CAD - h/o stents x 1 at [facility] by Dr. Stevenson approx 15 yrs ago ICM - Echocardiogram of 01-05-22 showed LVEF 35-40%. Akinesis of the apical myocardium. Hypokinesis of the anteroseptal myocardium. LA mod to mod dilated. Mild MR. Trivial AoR HTN HLD - statin tx Plan: * Treat with antiplatelet agents, bb and IVELISSE-inhib * Titrate up bb and IVELISSE-inhib * Add spironolactone, furosemide, and SGLT-2 inhib * Would need LifeVest prior to d/c * Discussed in detail with him, his , and his son VITOTHANH TIDWELL FACP [facility] CCDS Jan 07, 2022 16:58
[2022-01-07] MEDS ORDERED: PATIENT MAY USE OWN MEDS, ALL PO SCH (17:00)
[2022-01-07] MEDS ORDERED: FUROSEMIDE 40 MG (LASIX) TAB PO NR (17:00)
[2022-01-07] MEDS ORDERED: SPIRONOLACTONE 25 MG (ALDACTONE) TAB PO NR (17:00)
[2022-01-07] MEDS ORDERED: NS IV 1000 ML 1,000 ML IV SCH (17:00)
[2022-01-07 19:55] VITALS: BP 130/89
--- NOTE | 2022-01-07 22:00 | CARDIAC CATHETERIZATION ---
DATE OF SERVICE: 01/07/2022 CARDIAC CATHETERIZATION REPORT INDICATION: The patient is a 66-year-old gentleman who was hospitalized with syncope. Echocardiography showed dilated cardiomyopathy. He has a history of coronary artery disease and has had stenting by Dr. Stevenson several years ago. At the time of hospitalization, troponin was minimally elevated. Cardiac catheterization was recommended. Informed consent was obtained. DESCRIPTION OF PROCEDURE: The patient was brought to the cardiac catheterization laboratory. Right groin was prepped and draped in the usual sterile fashion. A 1% lidocaine was used for local anesthesia. Modified Seldinger technique was used to advance a 5-British sheath through the right femoral artery. We carried out angiography of the right femoral artery through the sheath. We then used a 6-British JL4 catheter for left coronary angiography and a 6-British JR4 catheter for right coronary angiography. We used 5-British pigtail catheter for left heart catheterization and left ventricular angiography. At the end of procedure, Mynx was used to achieve hemostasis following sheath removal. He tolerated the procedure well. HEMODYNAMICS: Left ventricular end diastolic pressure following coronary angiography was 10 mmHg. There was no significant pressure gradient on pullback across the aortic valve. CORONARY ANGIOGRAPHY: Left main coronary artery is free of significant disease. Left anterior descending artery has a widely patent stent in its proximal portion. The left anterior descending artery has mild plaque. Left circumflex artery does not exhibit significant disease. 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 It does not exhibit significant disease. LEFT VENTRICULAR ANGIOGRAPHY: Left ventricular angiography was carried out in the right anterior oblique projection. Global left ventricular systolic function is markedly impaired. Left ventricular ejection fraction is estimated to be 20-25%. CONCLUSIONS: 1. Mild coronary artery disease. There is a widely patent stent in the proximal left anterior descending. 2. Marked impairment in global left ventricular systolic function with global hypokinesis of left ventricle. Left ventricular ejection fraction of 20-25%. 3. Normal left ventricular end diastolic pressure. Job ID: [id number] DocumentID: [id number] Dictated Date: 01/07/2022 16:52:20 Punching Machine Operator Date: 01/07/2022 21:58:00 Dictated By: THANH PADRON MD; MA; FACP; FACC; WILLIE
[2022-01-08 00:46] VITALS: BP 116/82
[2022-01-08 03:30] VITALS: BP 115/73
[2022-01-08 06:00] LABS: BASOPHILS # (AUTO) 0.1 10^3/uL (0.0-0.1); BASOPHILS % (AUTO) 1 % (0-10); EOSINOPHILS # (AUTO) 0.2 10^3/uL (0.0-0.3); EOSINOPHILS % (AUTO) 2 % (0-10); HEMATOCRIT 53 % (40-54); HEMOGLOBIN 17.8 g/dL (13.3-17.7); LYMPHOCYTES # (AUTO) 2.2 10^3/uL (1.0-4.0); LYMPHOCYTES % (AUTO) 18 % (12-44); MEAN CORPUSCULAR HEMOGLOBIN 31 pg (25-34); MEAN CORPUSCULAR HGB CONC 34 g/dL (32-36); MEAN CORPUSCULAR VOLUME 91 fL (80-99); MEAN PLATELET VOLUME 10.1 fL (9.0-12.2); MONOCYTES # (AUTO) 1.1 10^3/uL (0.0-1.0); MONOCYTES % (AUTO) 9 % (0-12); NEUTROPHILS # (AUTO) 8.7 10^3/uL (1.8-7.8); NEUTROPHILS % (AUTO) 71 % (42-75); PLATELET COUNT 190 10^3/uL (130-400); WHITE BLOOD COUNT 12.3 10^3/uL (4.3-11.0)
[2022-01-08] MEDS: MULTIVIT W/MINERALS TAB (THERAGRAN M) PO SCH (06:23)
[2022-01-08 06:27] LABS: CALCIUM 9.8 MG/DL (8.5-10.1); CREATININE SERUM 0.86 MG/DL (0.60-1.30); MAGNESIUM 1.7 MG/DL (1.6-2.4); POTASSIUM 3.8 MMOL/L (3.6-5.0)
[2022-01-08 08:00] VITALS: BP 114/85
--- NOTE | 2022-01-08 08:59 | Discharge Summary ---
Diagnosis/Chief Complaint Date of Admission Jan 05, 2022 at 1:24 am Date of Discharge Discharge Date: Jan 06, 2022 Admission Diagnosis NSTEMI Primary Care Bk Padilla DO Discharge Diagnosis (1) Atrial tachycardia Status: Acute (2) CAD (coronary artery disease) Status: Chronic (3) Essential (primary) hypertension Status: Chronic (4) HLD (hyperlipidemia) Status: Chronic (5) Syncope Status: Acute Discharge Summary Discharge Physical Exam Allergies: Coded Allergies: No Known Drug Allergies (Unverified , 01/05/22) Vitals & I&Os Vital Signs Date Time Temp Pulse Resp B/P (MAP) Pulse Ox O2 Delivery O2 Flow Rate FiO2 01/08/22 07:00 78 01/08/22 03:30 36.0 16 115/73 (87) 96 Room Air General Appearance: No Apparent Distress, WD/WN Respiratory: Lungs Clear, No Respiratory Distress Cardiovascular: Regular Rate, Rhythm, No Murmur Neurologic/Psychiatric: Alert, Oriented x3 Hospital Course Patient was admitted to the hospital secondary to syncope and elevated troponin. He was found to have an atrial tachycardia concerning for underlying atrial flutter. He was seen by cardiology started on Eliquis for stroke prophylaxis. He did have an echo done which revealed an EF around 30% and thus cardiac cath was done. No interventions are warranted. He was started on guideline directed heart failure therapy and a LifeVest was fitted and placed. He was discharged home to follow-up with his primary care physician Dr. Bates and to establish cardiology care with Dr. Sandhu here. He was incidentally found to have COVID and was treated with Paxlovid. This was continued upon discharge. Labs (last 24 hrs) Laboratory Tests 01/08/22 05:34: White Blood Count 12.3H, Red Blood Count 5.76H, Hemoglobin 17.8H, Hematocrit 53, Mean Corpuscular Volume 91, Mean Corpuscular Hemoglobin 31, Mean Corpuscular Hemoglobin Concent 34, Red Cell Distribution Width 12.9, Platelet Count 190, Mean Platelet Volume 10.1, Immature Granulocyte % (Auto) 0, Neutrophils (%) (Auto) 71, Lymphocytes (%) (Auto) 18, Monocytes (%) (Auto) 9, Eosinophils (%) (Auto) 2, Basophils (%) (Auto) 1, Neutrophils # (Auto) 8.7H, Lymphocytes # (Auto) 2.2, Monocytes # (Auto) 1.1H, Eosinophils # (Auto) 0.2, Basophils # (Auto) 0.1, Immature Granulocyte # (Auto) 0.0, Sodium Level 140, Potassium Level 3.8, Chloride Level 107, Carbon Dioxide Level 20L, Anion Gap 13, Blood Urea Nitrogen 17, Creatinine 0.86, Estimat Glomerular Filtration Rate 94, BUN/Creatinine Ratio 20, Glucose Level 101, Calcium Level 9.8, Magnesium Level 1.7 Patient resulted labs reviewed. Pending Labs Laboratory Tests 01/08/22 05:34: White Blood Count 12.3, Red Blood Count 5.76, Hemoglobin 17.8, Hematocrit 53, Mean Corpuscular Volume 91, Mean Corpuscular Hemoglobin 31, Mean Corpuscular Hemoglobin Concent 34, Red Cell Distribution Width 12.9, Platelet Count 190, Mean Platelet Volume 10.1, Immature Granulocyte % (Auto) 0, Neutrophils (%) (Auto) 71, Lymphocytes (%) (Auto) 18, Monocytes (%) (Auto) 9, Eosinophils (%) (Auto) 2, Basophils (%) (Auto) 1, Neutrophils # (Auto) 8.7, Lymphocytes # (Auto) 2.2, Monocytes # (Auto) 1.1, Eosinophils # (Auto) 0.2, Basophils # (Auto) 0.1, Immature Granulocyte # (Auto) 0.0, Sodium Level 140, Potassium Level 3.8, Chloride Level 107, Carbon Dioxide Level 20, Anion Gap 13, Blood Urea Nitrogen 17, Creatinine 0.86, Estimat Glomerular Filtration Rate 94, BUN/Creatinine Ratio 20, Glucose Level 101, Calcium Level 9.8, Magnesium Level 1.7 Discussion & Recommendations Discharge Planning: >30 minutes discharge planning Discharge Home Medications: Active Scripts Active Simvastatin 40 Mg Tablet 40 Mg PO HS 30 Days Stop until you have completed paxlovid. Can resume 2 days after it finishes. Reported Aspirin EC (Aspirin) 81 Mg Tablet.dr 81 Mg PO DAILY Multivitamin 1 Each Tablet 1 Each PO DAILY Flomax (Tamsulosin HCl) 0.4 Mg Cap 0.4 Mg PO HS Carvedilol 12.5 Mg Tablet 12.5 Mg PO BID Lisinopril 10 Mg Tablet 10 Mg PO DAILY Instructions to patient/family Please see electronic discharge instructions given to patient. Problem Qualifiers (1) CAD (coronary artery disease): Coronary Disease-Associated Artery/Lesion type: [place] artery [place] vs. transplanted heart: [place] heart Associated angina: without angina Qualified Codes: I25.10 - Atherosclerotic heart disease of [place] coronary artery without angina pectoris (2) HLD (hyperlipidemia): Hyperlipidemia type: mixed hyperlipidemia Qualified Codes: E78.2 - Mixed hyperlipidemia (3) Syncope: Syncope type: unspecified Qualified Codes: R55 - Syncope and collapse PHILLIP MOREIRA MD Jan 08, 2022 8:59 am
[2022-01-08] MEDS ORDERED: EMPAGLIFLOZIN 10 MG TABLET (JARDIANCE) PO SCH (09:00)
[2022-01-08] MEDS ORDERED: SPIRONOLACTONE 25 MG (ALDACTONE) TAB PO SCH (09:00)
[2022-01-08] MEDS ORDERED: lisINopril 5 MG (PRINIVIL) TABLET PO SCH (09:00)
[2022-01-08] MEDS ORDERED: FUROSEMIDE 40 MG (LASIX) TAB PO SCH (09:00)
[2022-01-08] MEDS: ASPIRIN 81 MG CHEW (CHILDREN'S ASA) PO SCH (11:39)
[2022-01-08] MEDS: NIRMATRELVIR/RITONAVIR (PAXLOVID) TABLET PO SCH (11:41)
[2022-01-08] MEDS: APIXABAN 2.5 MG (ELIQUIS) TABLET PO SCH (11:41)
[2022-01-08 12:00] VITALS: BP 122/73
[2022-01-08] MEDS ORDERED: EMPA10TA PO (16:17)
[2022-01-08] MEDS ORDERED: FURO40TA4 PO ×2 (16:17→16:47)
[2022-01-08] MEDS ORDERED: ASPI81TA64 PO (16:17)
[2022-01-08] MEDS ORDERED: SPIR25TA5 PO ×2 (16:17→16:47)
--- NOTE | 2022-01-08 16:19 | Discharge Inst-Cardiology ---
Discharge Inst-Cardiac Discharge Medications New Medications: Aspirin (Children's Aspirin) 81 Mg Tab.chew 81 MG PO DAILY for 30 Days, #30 TAB 3 Refills Empagliflozin (Jardiance) 10 Mg Tablet 10 MG PO DAILY for 30 Days, #30 TAB 3 Refills Furosemide (Furosemide) 40 Mg Tablet 40 MG PO DAILY for 30 Days, #30 TAB 3 Refills Spironolactone (Spironolactone) 25 Mg Tablet 25 MG PO DAILY for 30 Days, #30 TAB 3 Refills Changed Medications: Simvastatin (Simvastatin) 40 Mg Tablet 40 MG PO HS for 30 Days, TAB (Medication details modified) Stop until you have completed paxlovid. Can resume 2 days after it finishes. Continued Medications: Carvedilol (Carvedilol) 12.5 Mg Tablet 12.5 MG PO BID, TAB Lisinopril (Lisinopril) 10 Mg Tablet 10 MG PO DAILY, TAB Multivitamin (Multivitamin) 1 Each Tablet 1 EACH PO DAILY, TAB Tamsulosin HCl (Flomax) 0.4 Mg Cap 0.4 MG PO HS, CAP Discontinued Medications: Aspirin (Aspirin EC) 81 Mg Tablet.dr 81 MG PO DAILY, TAB Patient Instructions Patient Instructions: F/u with Dr Flanagan in one week BMP and magnesium level next week Activity & Diet Discharge Diet: Cardiac Diet Activity as Tolerated: Yes THANH FLANAGAN MD [facility] Jan 08, 2022 16:19
--- NOTE | 2022-01-08 16:25 | Progress Note - Cardiology ---
Cardiology SOAP Progress Note Subjective: No recurrence of syncope since admission Shortness of breath better No n/v/d Gen weakness better No focal weakness No groin or leg discomfort or weakness No swelling Wishes to go home Objective: I&O/Vital Signs 01/08/22 01/08/22 01/08/22 01/08/22 07:00 08:00 08:00 12:00 Temp 36.0 36.4 Pulse 78 16 81 Resp 16 20 B/P (MAP) 114/85 (95) 122/73 (89) Pulse Ox 98 95 95 O2 Delivery Room Air Room Air Room Air 01/08/22 12:47 Pulse 68 01/08/22 00:00 Intake Total 940 ml Balance 940 ml Constitutional: AAO x 3, well-developed, well-nourished Respiratory: No accessory muscle use, No respiratory distress; chest expansion is symmetric, chest is bilaterally symmetric, lungs clear to auscultation Cardiovascular: regular rate-rhythm; No JVD; S1 and S2 Gastrointestional: No tender; soft, round, audible bowel sounds Extremities: no lower extremity edema bilateral Neurologic/Psychiatric: grossly intact (moves all extremities) Skin: No rash on exposed areas, No ulcerations on exposed areas Results/Procedures: Labs Laboratory Tests 01/08/22 05:34: White Blood Count 12.3H, Red Blood Count 5.76H, Hemoglobin 17.8H, Hematocrit 53, Mean Corpuscular Volume 91, Mean Corpuscular Hemoglobin 31, Mean Corpuscular Hemoglobin Concent 34, Red Cell Distribution Width 12.9, Platelet Count 190, Mean Platelet Volume 10.1, Immature Granulocyte % (Auto) 0, Neutrophils (%) (Auto) 71, Lymphocytes (%) (Auto) 18, Monocytes (%) (Auto) 9, Eosinophils (%) (Auto) 2, Basophils (%) (Auto) 1, Neutrophils # (Auto) 8.7H, Lymphocytes # (Au to) 2.2, Monocytes # (Auto) 1.1H, Eosinophils # (Auto) 0.2, Basophils # (Auto) 0.1, Immature Granulocyte # (Auto) 0.0, Sodium Level 140, Potassium Level 3.8, Chloride Level 107, Carbon Dioxide Level 20L, Anion Gap 13, Blood Urea Nitrogen 17, Creatinine 0.86, Estimat Glomerular Filtration Rate 94, BUN/Creatinine Ratio 20, Glucose Level 101, Calcium Level 9.8, Magnesium Level 1.7 A/P: Assessment: Syncope in the setting or dilated cardiomyopathy - undetermined etiology: arrhythmia vs postural hypotension (during acute Covid) on 01/04/22 - Echo on 01/06/22: LVEF 35-40%, shamar-apical hypokinesis to akinesis - Card cath on 01/07/22: LVEF 20-25%, global hypokinesis, LVEF 20-25%, LVEDP 10 mmHg, patent stent in prox LAD, mild CAD - LifeVest placed on 01/08/22 Atrial tachycardia on EKG of 01-04-22 at [facility], transient, no recurrence Abnormal ECG: NSR with nonspecific IVCD Minimal troponin elevation - 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 Stevenson approx 15 yrs ago Dilated cardiomyopathy - Echocardiogram of 01-05-22 showed LVEF 35-40%. Akinesis of the apical myocardium. Hypokinesis of the anteroseptal myocardium. LA mod to mod dilated. Mild MR. Trivial AoR HTN HLD - statin tx Plan: * Discussed in detail with him and his * Continue current heart failure meds * LifeVest placed * Close outpt f/u advised. Labs and f/u next week * Sleep studies advised that he will pursue as an outpt THANH PADRON MD FACP [facility] Jan 08, 2022 16:25
[2022-01-08 16:48] VITALS: BP 117/75
== END 2022-01-08 17:21 | disposition home or self-care (01) ==
LOC: INTOOBSV 01-05 01:24 → CSD 01-05 01:24
PROVIDERS: ADMIT Internal Medicine; ATTEND Internal Medicine
DX: I25.10 Atherosclerotic heart disease of native coronary artery without angina pectoris (principal); I10 Essential (primary) hypertension; I21.4 Non-ST elevation (NSTEMI) myocardial infarction; E78.5 Hyperlipidemia, unspecified; U07.1 COVID-19; P27.1 Bronchopulmonary dysplasia originating in the perinatal period; I47.1 Supraventricular tachycardia
CPT/HCPCS: 80048 ×3; 80053; 80061; 83735 ×4; 84443; 84484; 85025; 85027; 93005; 93458; 96361 ×2; C1894; C8929; G0378; G0379; 36415; 93306

== ENCOUNTER 2022-03-16 12:08 | Outpatient (CLI) | payer MEDICARE ==
[~2022-03-16 12:08] MED LIST: ASPI-1238 PO; ASPI81TA64 PO; CARV12.53 PO; EMPA10TA PO; FURO40TA4 PO; LISI10TA25 PO; MULT-1136 PO; SIMV40TA25 PO; SPIR25TA5 PO; TMSL.4C PO
== END 2022-03-16 12:40 ==
LOC: SLEEP 12:08
PROVIDERS: ATTEND Nurse Practitioner
DX: I25.9 Chronic ischemic heart disease, unspecified (principal); G47.10 Hypersomnia, unspecified; R06.83 Snoring
CPT/HCPCS: G0399

== ENCOUNTER → 2022-04-06 | Outpatient (CLI) | payer MEDICARE | LOC: CARD 09:47 | PROVIDERS: ATTEND Internal Medicine Cardiovascular Disease | DX: I51.7 Cardiomegaly (principal); I42.0 Dilated cardiomyopathy | CPT/HCPCS: 93306 ==

== ENCOUNTER → 2022-05-05 | Outpatient (CLI) | payer MEDICARE ==
[~2022-05-05] MED LIST changes: +CATHETER FLUSH 10 ML SYR IVP PRN; +HEParin (CENTRAL IV FLUSH) 500 UNIT/5 ML SYR ONE
--- NOTE | 2022-05-11 12:14 | STRESS TEST ---
DATE OF SERVICE: 05/05/2022 RADIONUCLIDE VENTRICULOGRAPHY ORDERING PHYSICIAN: Dr. Flanagan. PRIMARY PHYSICIAN: Dr. Padilla. CLINICAL DIAGNOSIS: Dilated cardiomyopathy. Radionuclide ventriculography was carried out with autologous red blood cell tagged with 32.5 mCi of [id number]. Gated images show anteroapical akinesis. Left ventricular ejection fraction is calculated to be 34%. CONCLUSIONS: 1. Anteroapical akinesis. 2. Left ventricular ejection fraction 34%. Job ID: [id number] DocumentID: [id number] Dictated Date: 05/11/2022 09:55:48 Punch Machine Operator Date: 05/11/2022 12:12:00 Dictated By: THANH FLANAGAN MD; MA; FACP; FACC;
== END ==
LOC: CARD 08:07
PROVIDERS: ATTEND Internal Medicine Cardiovascular Disease
DX: I51.89 Other ill-defined heart diseases (principal)
CPT/HCPCS: 78472; A9560